=== PATIENT | male | born 1955 | race African-American/Black ===

== ENCOUNTER 2017-01-24 18:32 | Inpatient (IN) | payer MEDICAID ==
[~2017-01-24] VITALS: Ht 185.4 cm; Wt 120.6 kg
[~2017-01-24 18:32] MED LIST: ETOMIDATE 20 MG/10 ML ONE; MIDAZOLAM 1 MG/ML, 5ML ONE; PROPOFOL 10 MG/ML, 100ML IV ONE; PROPOFOL 10 MG/ML, 20ML ONE; ROCURONIUM 10 MG/ML ONE; SUCCINYLCHOLINE 20 MG/ML, 10ML ONE
[2017-01-24] MEDS: PROPOFOL 100 ML IV PRN ×2 (18:56→22:49)
[2017-01-24] MEDS ORDERED: NALOXONE 0.4 MG/ML, 1ML ONE (18:58)
[2017-01-24] MEDS ORDERED: SUCCINYLCHOLINE 20 MG/ML, 10ML IVPush ONE (19:00)
[2017-01-24] MEDS ORDERED: SODIUM CHLORIDE 0.9% 1,000ML IVBOLUS ONE ×2 (19:00→21:30)
[2017-01-24] MEDS ORDERED: PLEASE ENTER ALLERGIES MC SCH ×2 (19:00)
[2017-01-24] MEDS ORDERED: PLEASE ENTER HEIGHT AND WEIGHT MC SCH (19:00)
[2017-01-24] MEDS ORDERED: SODIUM CHLORIDE FLUSH 10ML SYR IVF ONE (19:00)
[2017-01-24] MEDS ORDERED: HYDROmorphone 1 MG/ML, 1ML ONE (19:05)
[2017-01-24 19:12] LABS: HEMATOCRIT 50.7 % (39.2-51.8)
[2017-01-24 19:18] LABS: BLOOD UREA NITROGEN 13 mg/dL (7-18)
[2017-01-24] MEDS: HYDROmorphone 1 MG/ML, 1ML IVPush PRN ×2 (19:23→21:48)
[2017-01-24 19:25] LABS: ACETAMINOPHEN < 2 mcg/mL (10-30); ASPARTATE AMINO TRANSFERASE 51 U/L (15-37); IS PT STATUS REG ER OR PRE ER? YES
[2017-01-24] MEDS ORDERED: BACITRACIN ZINC OINT 500U/GM, 0.9 GM ONE (19:26)
[2017-01-24] MEDS ORDERED: OXYMETAZOLINE NASAL SPRAY 0.05%, 15ML ONE (19:27)
[2017-01-24] MEDS ORDERED: ALBUTEROL SULFATE 2.5 MG/3 ML ONE ×2 (19:28→22:28)
[2017-01-24] MEDS ORDERED: PROPOFOL 10 MG/ML, 20ML IVPush ONE (19:30)
[2017-01-24 19:31] LABS: DIFF TOTAL CELLS COUNTED 100 CELL DIFF
[2017-01-24 19:35] LABS: VERIFY COUNTS? YES
[2017-01-24 19:37] LABS: ABG COLLECTION SITE RIGHT RADIAL; COLLATERAL CIRCULATION TESTING NORMAL
[2017-01-24] MEDS ORDERED: PROPOFOL 100 ML IV PRN (20:48)
[2017-01-24] MEDS ORDERED: LIDOCAINE-MPF 1%, 2ML ENDO PRN (21:00)
[2017-01-24] MEDS ORDERED: LACTULOSE 20 GM/30 ML UDC NG PRN (21:00)
[2017-01-24] MEDS ORDERED: PHARMACY MAY ADJ FOR RENAL FX MC SCH (21:00)
[2017-01-24] MEDS ORDERED: MIDAZOLAM 1 MG/ML, 5ML IVPush ONE (21:30)
[2017-01-24] MEDS ORDERED: VECURONIUM 10 MG IVPush ONE (21:30)
[2017-01-24] MEDS ORDERED: NOREPINEPHRINE 4 MG in SODIUM CHLORIDE 0.9% 246 ML IV PRN (22:00)
[2017-01-24] MEDS: FAMOTIDINE 20 MG/2 ML IVPush SCH (22:48)
[2017-01-24] MEDS ORDERED: ALBUTEROL SULFATE 2.5MG/0.5ML NPPB SCH (23:00)
[2017-01-24] MEDS: FENTANYL PF 100 MCG/2ML IVPush PRN (23:12)
[2017-01-24] MEDS: POTASSIUM CHLORIDE 20 MEQ, MAGNESIUM SULFATE 2 GM, THIAMINE 100 MG, MVI ADULT 10 ML, FO... IV SCH (23:17)
[2017-01-25] MEDS: PROPOFOL 100 ML IV PRN ×3 (01:37→05:47)
[2017-01-25] MEDS: FENTANYL PF 100 MCG/2ML IVPush PRN ×3 (01:53→05:47)
[2017-01-25] MEDS ORDERED: ALBUTEROL SULFATE 2.5 MG/3 ML ONE (01:53)
[2017-01-25] MEDS: ALBUTEROL SULFATE 2.5 MG/3 ML NPPB SCH ×3 (02:26→20:15)
[2017-01-25 04:04] LABS: HEMATOCRIT 43.3 % (39.2-51.8); HEMOGLOBIN 14.3 g/dL (13.7-18.0); WHITE BLOOD COUNT 6.9 x10^3/uL (3.4-10)
[2017-01-25 04:17] LABS: BLOOD UREA NITROGEN 12 mg/dL (7-18)
[2017-01-25 04:20] LABS: ASPARTATE AMINO TRANSFERASE 53 U/L (15-37)
[2017-01-25 04:23] LABS: ABG COLLECTION SITE RIGHT BRACHIAL
[2017-01-25 07:44] LABS: DAU SCREEN DISCLAIMER
[2017-01-25] MEDS: AMPICILLIN/SULBACTAM 3 GM in SODIUM CHLORIDE 0.9% 100 ML IV SCH ×3 (07:53→20:41)
[2017-01-25] MEDS ORDERED: ZIPRASIDONE 20 MG INJ IM ONE (08:00)
[2017-01-25] MEDS: FAMOTIDINE 20 MG/2 ML IVPush SCH ×2 (10:49→20:42)
[2017-01-25] MEDS: LABETALOL 5MG/ML, 20ML IVPush PRN ×2 (11:30→16:40)
[2017-01-25] MEDS: hydrALAzine 20 MG/ML, 1ML IV PRN (12:19)
[2017-01-25] MEDS: LISINOPRIL 10 MG TABLET PO SCH ×2 (13:24→20:42)
[2017-01-25 14:13] VITALS: BP 172/96
[2017-01-25] MEDS: LORazepam 1MG TABLET PO PRN ×2 (16:37→20:42)
[2017-01-25 16:38] VITALS: BP 198/111
[2017-01-25 17:29] VITALS: BP 161/111
[2017-01-25 18:53] VITALS: BP 162/93
[2017-01-25] MEDS ORDERED: FILTER 0.22 MICRON IV PRN (23:30)
[2017-01-25] MEDS ORDERED: AMIODARONE 150 MG in DEXTROSE 5% 100 ML IV ONE (23:30)
[2017-01-25] MEDS: POTASSIUM CHLORIDE 20 MEQ, MAGNESIUM SULFATE 2 GM, THIAMINE 100 MG, MVI ADULT 10 ML, FO... IV SCH (23:48)
[2017-01-26] MEDS: AMIODARONE 900 MG in DEXTROSE 5% 482 ML IV PRN ×2 (00:18→20:38)
[2017-01-26] MEDS: LORazepam 1MG TABLET PO PRN (00:42)
[2017-01-26 01:50] VITALS: BP 175/85
[2017-01-26] MEDS: AMPICILLIN/SULBACTAM 3 GM in SODIUM CHLORIDE 0.9% 100 ML IV SCH ×2 (03:08→09:20)
[2017-01-26 05:19] LABS: HEMATOCRIT 47.2 % (39.2-51.8); WHITE BLOOD COUNT 6.7 x10^3/uL (3.4-10)
[2017-01-26 07:28] VITALS: BP 186/114
[2017-01-26] MEDS: hydrALAzine 20 MG/ML, 1ML IV PRN ×3 (07:44→19:59)
[2017-01-26] MEDS: FAMOTIDINE 20 MG/2 ML IVPush SCH ×2 (08:50→19:58)
[2017-01-26] MEDS: LISINOPRIL 10 MG TABLET PO SCH ×2 (08:50→20:00)
[2017-01-26] MEDS ORDERED: ALBUTEROL SULFATE 2.5 MG/3 ML ONE (09:29)
[2017-01-26] MEDS: ALBUTEROL SULFATE 2.5 MG/3 ML NPPB SCH (09:30)
[2017-01-26 10:15] VITALS: BP 185/90
[2017-01-26] MEDS ORDERED: NITROGLYCERIN 0.4 MG/SPRAY SL PRN (11:00)
[2017-01-26] MEDS: LABETALOL 5MG/ML, 20ML IVPush PRN ×2 (11:20→17:55)
[2017-01-26 11:26] LABS: HEMATOCRIT 50.6 % (39.2-51.8); HEMOGLOBIN 17.3 g/dL (13.7-18.0); WHITE BLOOD COUNT 7.3 x10^3/uL (3.4-10)
[2017-01-26] MEDS ORDERED: AMIODARONE 150 MG in DEXTROSE 5% 100 ML IV ONE (11:30)
[2017-01-26 11:38] LABS: ASPARTATE AMINO TRANSFERASE 58 U/L (15-37); BLOOD UREA NITROGEN 6 mg/dL (7-18)
[2017-01-26 11:43] LABS: IS PT STATUS REG ER OR PRE ER? NO
[2017-01-26 12:03] LABS: ABG COLLECTION SITE RIGHT RADIAL; COLLATERAL CIRCULATION TESTING NORMAL
[2017-01-26] MEDS: ACETAMINOPHEN 325 MG TABLET PO PRN ×2 (16:31→20:38)
[2017-01-26 17:36] LABS: IS PT STATUS REG ER OR PRE ER? NO
[2017-01-26] MEDS ORDERED: FILTER 0.22 MICRON IV PRN (18:30)
[2017-01-26] MEDS: CARVEDILOL 3.125 MG TABLET PO SCH (18:43)
[2017-01-26] MEDS: ATORVASTATIN 20 MG TABLET PO SCH (19:59)
[2017-01-26] MEDS ORDERED: ENOXAPARIN 40 MG/0.4 ML SQ SCH (20:00)
[2017-01-26] MEDS: POTASSIUM CHLORIDE 20 MEQ, MAGNESIUM SULFATE 2 GM, THIAMINE 100 MG, MVI ADULT 10 ML, FO... IV SCH (22:22)
[2017-01-26] MEDS ORDERED: ONDANSETRON 2MG/ML, 2ML ONE (22:40)
[2017-01-26] MEDS ORDERED: ONDANSETRON 2MG/ML, 2ML IVPush PRN (23:00)
[2017-01-26] MEDS ORDERED: OMEP20CA14 PO (23:10)
[2017-01-26] MEDS ORDERED: GABA800T2 PO (23:10)
[2017-01-26] MEDS ORDERED: METO25TA9 PO (23:10)
[2017-01-26] MEDS ORDERED: DULO60CA7 PO (23:10)
[2017-01-26] MEDS ORDERED: CLON-275 PO (23:10)
[2017-01-26] MEDS ORDERED: BENA10TA2 PO (23:10)
[2017-01-26] MEDS ORDERED: HYDR50TA13 PO (23:10)
[2017-01-26] MEDS ORDERED: ASPI-496 PO (23:10)
[2017-01-26] MEDS ORDERED: MONT10TA6 PO (23:10)
[2017-01-26] MEDS ORDERED: TIZA4CAP PO (23:10)
[2017-01-26] MEDS ORDERED: RIVA20TA PO (23:10)
[2017-01-26] MEDS ORDERED: SERT50TA5 PO (23:10)
[2017-01-26] MEDS ORDERED: PANT40TA3 PO (23:10)
[2017-01-26] MEDS ORDERED: POTA25TA4 PO (23:10)
[2017-01-26 23:55] LABS: IS PT STATUS REG ER OR PRE ER? NO
[2017-01-27] MEDS: ACETAMINOPHEN 325 MG TABLET PO PRN ×2 (01:25→05:16)
[2017-01-27 04:30] VITALS: BP 151/108
[2017-01-27 04:38] LABS: ABG COLLECTION SITE LEFT RADIAL; COLLATERAL CIRCULATION TESTING NORMAL; FIO2 RA %
[2017-01-27 04:47] LABS: HEMATOCRIT 49.3 % (39.2-51.8); HEMOGLOBIN 16.4 g/dL (13.7-18.0); WHITE BLOOD COUNT 7.4 x10^3/uL (3.4-10)
[2017-01-27] MEDS: CARVEDILOL 3.125 MG TABLET PO SCH (05:16)
[2017-01-27] MEDS: LABETALOL 5MG/ML, 20ML IVPush PRN ×2 (05:36→18:05)
[2017-01-27] MEDS ORDERED: ASPIRIN 325 MG TABLET PO SCH (06:00)
[2017-01-27 07:19] LABS: BLOOD UREA NITROGEN 8 mg/dL (7-18)
[2017-01-27 07:24] LABS: ASPARTATE AMINO TRANSFERASE 57 U/L (15-37)
[2017-01-27] MEDS: LISINOPRIL 10 MG TABLET PO SCH (08:01)
[2017-01-27] MEDS: FAMOTIDINE 20 MG/2 ML IVPush SCH (08:01)
[2017-01-27] MEDS: OMEPRAZOLE 20 MG CAPSULE.DR PO SCH (09:00)
[2017-01-27] MEDS ORDERED: CLOPIDOGREL 75 MG TABLET PO SCH (09:00)
[2017-01-27] MEDS: GABAPENTIN 400 MG CAPSULE PO SCH ×3 (09:27→20:48)
[2017-01-27] MEDS: SERTRALINE 50MG TABLET PO SCH (09:27)
[2017-01-27] MEDS: TIZANIDINE 4MG TABLET PO SCH ×3 (09:27→20:47)
[2017-01-27] MEDS: BENAZEPRIL 10 MG TABLET PO SCH (09:28)
[2017-01-27] MEDS: RIVAROXABAN 20 MG TABLET PO SCH (09:28)
[2017-01-27] MEDS: MONTELUKAST 10 MG TABLET PO SCH (09:30)
[2017-01-27] MEDS: hydrOXyzine 50MG TABLET PO SCH (09:30)
[2017-01-27] MEDS: METOPROLOL SUCCINATE 25 MG TAB.ER.24H PO SCH ×2 (09:30→20:48)
[2017-01-27] MEDS: DULOXETINE 30 MG CAPSULE.DR PO SCH (09:31)
[2017-01-27] MEDS: AMIODARONE 200 MG TABLET PO SCH ×2 (10:13→20:47)
[2017-01-27] MEDS: ATORVASTATIN 20 MG TABLET PO SCH (20:47)
[2017-01-28 04:15] VITALS: BP 137/89
[2017-01-28 04:40] LABS: HEMATOCRIT 45.7 % (39.2-51.8); HEMOGLOBIN 15.6 g/dL (13.7-18.0); WHITE BLOOD COUNT 7.3 x10^3/uL (3.4-10)
[2017-01-28 05:02] LABS: BLOOD UREA NITROGEN 12 mg/dL (7-18)
[2017-01-28] MEDS: ASPIRIN 81 MG TABLET EC PO SCH (06:24)
[2017-01-28 07:33] VITALS: BP 152/103
[2017-01-28] MEDS: RIVAROXABAN 20 MG TABLET PO SCH (07:52)
[2017-01-28] MEDS: AMIODARONE 200 MG TABLET PO SCH ×2 (07:52→20:55)
[2017-01-28] MEDS: METOPROLOL SUCCINATE 25 MG TAB.ER.24H PO SCH ×2 (07:52→20:56)
[2017-01-28] MEDS: GABAPENTIN 400 MG CAPSULE PO SCH ×3 (07:53→20:55)
[2017-01-28] MEDS: BENAZEPRIL 10 MG TABLET PO SCH (07:53)
[2017-01-28] MEDS: OMEPRAZOLE 20 MG CAPSULE.DR PO SCH (07:53)
[2017-01-28] MEDS: TIZANIDINE 4MG TABLET PO SCH ×3 (07:53→20:55)
[2017-01-28] MEDS: DULOXETINE 30 MG CAPSULE.DR PO SCH (07:54)
[2017-01-28] MEDS: MONTELUKAST 10 MG TABLET PO SCH (07:54)
[2017-01-28] MEDS: hydrOXyzine 50MG TABLET PO SCH (07:55)
[2017-01-28] MEDS ORDERED: MORPHINE SULFATE 4 MG/ML, 1ML ONE (11:22)
[2017-01-28] MEDS ORDERED: NITROGLYCERIN SINGLE TAB 0.4 MG SL ONE (11:47)
[2017-01-28 12:06] LABS: IS PT STATUS REG ER OR PRE ER? NO
[2017-01-28] MEDS ORDERED: MIDAZOLAM 1 MG/ML, 5ML ONE (12:25)
[2017-01-28] MEDS ORDERED: FENTANYL PF 100 MCG/2ML ONE (12:26)
[2017-01-28] MEDS ORDERED: TICAGRELOR 90 MG TABLET ONE (12:26)
[2017-01-28] MEDS ORDERED: VERAPAMIL 2.5 MG/ML, 2ML ONE (12:26)
[2017-01-28] MEDS ORDERED: DIPHENHYDRAMINE 50 MG/ML, 1ML ONE (12:27)
[2017-01-28] MEDS ORDERED: LIDOCAINE 2%, 20ML ONE (12:27)
[2017-01-28] MEDS ORDERED: BIVALIRUDIN 250 MG ONE (12:27)
[2017-01-28] MEDS ORDERED: HEPARIN 1,000 UNITS/ML, 10ML ONE (12:27)
[2017-01-28] MEDS ORDERED: NITROGLYCERIN 5 MG/ML, 10ML ONE (12:28)
[2017-01-28 13:30] VITALS: BP 130/83
[2017-01-28] MEDS ORDERED: MORPHINE SULFATE 4 MG/ML, 1ML IVPush PRN (14:00)
[2017-01-28] MEDS ORDERED: NITROGLYCERIN SINGLE TAB 0.4 MG SL PRN (14:00)
[2017-01-28 14:02] VITALS: BP 135/90
[2017-01-28 16:57] VITALS: BP 137/89
[2017-01-28 18:49] VITALS: BP 120/73
[2017-01-28] MEDS: ATORVASTATIN 20 MG TABLET PO SCH (20:56)
[2017-01-28] MEDS: SERTRALINE 50MG TABLET PO SCH (20:56)
[2017-01-29 02:36] VITALS: BP 134/80
[2017-01-29] MEDS: ASPIRIN 81 MG TABLET EC PO SCH (04:45)
[2017-01-29 06:05] LABS: BLOOD UREA NITROGEN 15 mg/dL (7-18)
[2017-01-29 07:53] VITALS: BP 158/99
[2017-01-29] MEDS: BENAZEPRIL 10 MG TABLET PO SCH (08:14)
[2017-01-29] MEDS: hydrOXyzine 50MG TABLET PO SCH (08:14)
[2017-01-29] MEDS: TIZANIDINE 4MG TABLET PO SCH ×3 (08:14→21:54)
[2017-01-29] MEDS: SERTRALINE 50MG TABLET PO SCH (08:14)
[2017-01-29] MEDS: DULOXETINE 30 MG CAPSULE.DR PO SCH (08:14)
[2017-01-29] MEDS: RIVAROXABAN 20 MG TABLET PO SCH (08:15)
[2017-01-29] MEDS: GABAPENTIN 400 MG CAPSULE PO SCH ×3 (08:15→20:46)
[2017-01-29] MEDS: MONTELUKAST 10 MG TABLET PO SCH (08:15)
[2017-01-29] MEDS: OMEPRAZOLE 20 MG CAPSULE.DR PO SCH (08:15)
[2017-01-29] MEDS: METOPROLOL SUCCINATE 25 MG TAB.ER.24H PO SCH ×2 (08:15→20:46)
[2017-01-29] MEDS: AMIODARONE 200 MG TABLET PO SCH (08:15)
[2017-01-29 12:15] VITALS: BP 120/77
[2017-01-29 13:45] VITALS: BP 138/89
[2017-01-29 20:42] VITALS: BP 133/85
[2017-01-29] MEDS: ATORVASTATIN 20 MG TABLET PO SCH (20:46)
[2017-01-29] MEDS: ALBUTEROL SULFATE 2.5 MG/3 ML NPPB SCH (21:05)
[2017-01-30 01:55] VITALS: BP 165/96
[2017-01-30 02:30] VITALS: BP 143/67
[2017-01-30] MEDS: ASPIRIN 81 MG TABLET EC PO SCH (05:19)
[2017-01-30 07:34] VITALS: BP 194/131
[2017-01-30] MEDS: OMEPRAZOLE 20 MG CAPSULE.DR PO SCH (08:12)
[2017-01-30] MEDS: GABAPENTIN 400 MG CAPSULE PO SCH ×2 (08:12→16:18)
[2017-01-30] MEDS: MONTELUKAST 10 MG TABLET PO SCH (08:12)
[2017-01-30] MEDS: METOPROLOL SUCCINATE 25 MG TAB.ER.24H PO SCH (08:12)
[2017-01-30] MEDS: DULOXETINE 30 MG CAPSULE.DR PO SCH (08:12)
[2017-01-30] MEDS: RIVAROXABAN 20 MG TABLET PO SCH (08:12)
[2017-01-30] MEDS: LORazepam 1MG TABLET PO PRN (08:13)
[2017-01-30] MEDS: TIZANIDINE 4MG TABLET PO SCH ×2 (08:13→16:18)
[2017-01-30] MEDS: SERTRALINE 50MG TABLET PO SCH (08:13)
[2017-01-30] MEDS: hydrOXyzine 50MG TABLET PO SCH (08:13)
[2017-01-30] MEDS: BENAZEPRIL 10 MG TABLET PO SCH (08:23)
[2017-01-30] MEDS ORDERED: AMIODARONE 200 MG TABLET PO SCH (09:00)
[2017-01-30 13:27] VITALS: BP 144/91
== END 2017-01-30 16:54 | disposition home or self-care (01) | DRG 208 ==
LOC: ED 20:27 → EDIP 20:30 → CCU 21:26 → 4EST 01-25 14:34 → CCU 01-26 11:03 → 5SO 01-28 16:50
PROVIDERS: ADMIT Internal Medicine; ATTEND Internal Medicine
PROC: 0BH17EZ Insertion of Endotracheal Airway into Trachea, Via Natural or Artificial Opening (ICD-10-PCS; principal; 2017-01-24)
PROC: 5A1945Z Respiratory Ventilation, 24-96 Consecutive Hours (ICD-10-PCS; 2017-01-24)
PROC: 06HM33Z Insertion of Infusion Device into Right Femoral Vein, Percutaneous Approach (ICD-10-PCS; 2017-01-24)
PROC: B54BZZA Ultrasonography of Right Lower Extremity Veins, Guidance (ICD-10-PCS; 2017-01-24)
DX: J96.01 Acute respiratory failure with hypoxia (principal); G93.41 Metabolic encephalopathy; I47.2 Ventricular tachycardia; Z99.11 Dependence on respirator [ventilator] status; E87.2 Acidosis; I42.9 Cardiomyopathy, unspecified; E78.5 Hyperlipidemia, unspecified; E87.8 Other disorders of electrolyte and fluid balance, not elsewhere classified; F10.229 Alcohol dependence with intoxication, unspecified; I10 Essential (primary) hypertension; I25.10 Atherosclerotic heart disease of native coronary artery without angina pectoris; I49.3 Ventricular premature depolarization; J45.909 Unspecified asthma, uncomplicated; N28.9 Disorder of kidney and ureter, unspecified; R04.0 Epistaxis; Z79.01 Long term (current) use of anticoagulants; Z79.899 Other long term (current) drug therapy; Z86.711 Personal history of pulmonary embolism; Z87.891 Personal history of nicotine dependence; Z95.5 Presence of coronary angioplasty implant and graft
CPT/HCPCS: 31500; 36415; 36600; 51702; 70450; 71010; 80048; 80053; 80307; 80329; 82803; 83605; 83735; 83880; 84478; 84484; 85025; 87070; 87081; 87147; 87205; 93005; 93306; 93458; 94002; 94003; 94640; 99156; C1769; C1894; J0295; J0583; J1170; J1644; J1650; J2250; J2405; J2704; J3010; J3411; J3475; J3480; J3486; J3490; J7042; J7611; J7613; G0480; J0282; J0330; J0360; J1200; J7030; J7060; Q9967; S0028

== ENCOUNTER 2017-07-15 00:47 | Inpatient (IN) | payer MEDICAID ==
[~2017-07-15] VITALS: Ht 182.9 cm; Wt 126.6 kg
[~2017-07-15 00:47] MED LIST changes: +ASPI-496 PO; +BENA10TA2 PO; +CLON-275 PO; +DULO60CA7 PO; -ETOMIDATE 20 MG/10 ML ONE; +GABA800T2 PO; +HYDR50TA13 PO; +METO-282 PO; -MIDAZOLAM 1 MG/ML, 5ML ONE; +MONT10TA6 PO; +OMEP20CA14 PO; +PANT40TA3 PO; +POTA25TA4 PO; -PROPOFOL 10 MG/ML, 100ML IV ONE; -PROPOFOL 10 MG/ML, 20ML ONE; +RIVA20TA PO; -ROCURONIUM 10 MG/ML ONE; +SERT50TA5 PO; -SUCCINYLCHOLINE 20 MG/ML, 10ML ONE; +TIZA4CAP PO
[2017-07-15] MEDS ORDERED: SODIUM CHLORIDE 0.9% 1,000 ML IV ONE (00:54)
[2017-07-15] MEDS ORDERED: NITROGLYCERIN SINGLE TAB 0.4 MG SL PRN (01:00)
[2017-07-15] MEDS ORDERED: SODIUM CHLORIDE FLUSH 10ML SYR IVF ONE (01:00)
[2017-07-15] MEDS ORDERED: ONDANSETRON 2MG/ML, 2ML IVPush ONE (01:00)
[2017-07-15 01:11] LABS: BASOPHILS # (AUTO) 0.05 x10^3/uL (0-0.1); BASOPHILS % (AUTO) 1 % (0-1); EOSINOPHILS # (AUTO) 0.32 x10^3/uL (0-0.4); EOSINOPHILS % (AUTO) 5 % (1-7); LYMPHOCYTES # (AUTO) 2.42 x10^3/uL (1-3.4); LYMPHOCYTES % (AUTO) 39 % (22-44); MD NO; MEAN CORPUSCULAR HEMOGLOBIN 31.1 pg (27.5-34.5); MEAN CORPUSCULAR VOLUME 91.3 fL (81-97); MEAN PLATELET VOLUME 8.6 fL (7.4-10.4); MONOCYTES # (AUTO) 0.54 x10^3/uL (0.2-0.8); MONOCYTES % (AUTO) 9 % (2-9); NEUTROPHILS # (AUTO) 2.82 x10^3/uL (1.8-6.8); NEUTROPHILS % (AUTO) 46 % (42-75); PLATELET COUNT 221 x10^3/uL (130-400); RED BLOOD COUNT 4.68 x10^6/uL (4.38-5.82); RED CELL DISTRIBUTION WIDTH 13.9 % (9.4-14.8)
[2017-07-15] MEDS ORDERED: ONDANSETRON 2MG/ML, 2ML ONE (01:13)
[2017-07-15] MEDS ORDERED: MORPHINE SULFATE 4 MG/ML, 1ML ONE ×2 (01:13→05:40)
[2017-07-15 01:22] LABS: ALANINE AMINOTRANSFERASE 48 U/L (12-78); ALBUMIN 3.5 g/dL (3.4-5.0); ANION GAP 11 mmol/L (5-15); CALCIUM 8.2 mg/dL (8.5-10.1); CHLORIDE 107 mmol/L (98-107); CREATININE 1.23 mg/dL (0.7-1.3)
[2017-07-15] MEDS: MORPHINE SULFATE 4 MG/ML, 1ML IVPush PRN ×2 (01:22→05:45)
[2017-07-15 01:26] LABS: ALKALINE PHOSPHATASE 89 U/L (45-117); BILIRUBIN,TOTAL 0.4 mg/dL (0.2-1.0); TOTAL PROTEIN 7.4 g/dL (6.4-8.2); TROPONIN I < 0.015 ng/mL (0.000-0.045)
[2017-07-15] MEDS ORDERED: NITROGLYCERIN SINGLE TAB 0.4 MG SL ONE (01:47)
[2017-07-15 04:33] LABS: TROPONIN I < 0.015 ng/mL (0.000-0.045)
[2017-07-15] MEDS ORDERED: ONDANSETRON 2MG/ML, 2ML IVPush PRN ×2 (07:00→09:30)
[2017-07-15] MEDS ORDERED: CLON0.3T47 PO (09:00)
[2017-07-15] MEDS ORDERED: OXYC15TA PO (09:01)
[2017-07-15 09:28] VITALS: BP 151/96
[2017-07-15] MEDS ORDERED: ONDANSETRON ODT 4 MG PO PRN (09:30)
[2017-07-15] MEDS ORDERED: ACETAMINOPHEN 325 MG TABLET PO PRN (09:30)
[2017-07-15] MEDS: POTASSIUM CHLORIDE 20 MEQ TAB.ER.PRT PO SCH ×2 (10:30→15:54)
[2017-07-15] MEDS ORDERED: NITROGLYCERIN 0.4 MG/SPRAY SL PRN (10:30)
[2017-07-15] MEDS: OXYcodone IR 5MG TABLET PO PRN ×3 (10:30→22:32)
[2017-07-15] MEDS ORDERED: NITROGLYCERIN 0.4 MG BOTTLE (25 TABS) SL PRN (10:30)
[2017-07-15] MEDS: BENAZEPRIL 10 MG TABLET PO SCH (10:31)
[2017-07-15 12:42] LABS: TROPONIN I < 0.015 ng/mL (0.000-0.045)
[2017-07-15] MEDS: GABAPENTIN 400 MG CAPSULE PO SCH ×2 (15:54→21:00)
[2017-07-15] MEDS: TIZANIDINE 4MG TABLET PO SCH ×2 (15:54→21:00)
[2017-07-15 17:36] VITALS: BP 158/99
[2017-07-15 18:29] LABS: TROPONIN I < 0.015 ng/mL (0.000-0.045)
[2017-07-15] MEDS: KETOROLAC 30 MG/1 ML IVPush PRN (18:39)
[2017-07-15 20:40] VITALS: BP 172/104
[2017-07-15] MEDS: METOPROLOL SUCCINATE 25 MG TAB.ER.24H PO SCH (21:00)
[2017-07-15] MEDS: RIVAROXABAN 20 MG TABLET PO SCH (21:00)
[2017-07-15] MEDS: POTASSIUM CHLORIDE 10 MEQ TABLET.ER PO SCH (21:00)
[2017-07-15 23:21] VITALS: BP 123/82
[2017-07-16 04:08] VITALS: BP 138/80
[2017-07-16] MEDS: OXYcodone IR 5MG TABLET PO PRN ×2 (04:34→18:12)
[2017-07-16 05:03] LABS: CHLORIDE 106 mmol/L (98-107)
[2017-07-16 05:11] LABS: BASOPHILS # (AUTO) 0.04 x10^3/uL (0-0.1); BASOPHILS % (AUTO) 1 % (0-1); EOSINOPHILS # (AUTO) 0.36 x10^3/uL (0-0.4); EOSINOPHILS % (AUTO) 8 % (1-7); LYMPHOCYTES # (AUTO) 2.38 x10^3/uL (1-3.4); LYMPHOCYTES % (AUTO) 50 % (22-44); MD NO; MEAN CORPUSCULAR HEMOGLOBIN 31.4 pg (27.5-34.5); MEAN CORPUSCULAR VOLUME 92.3 fL (81-97); MEAN PLATELET VOLUME 8.9 fL (7.4-10.4); MONOCYTES # (AUTO) 0.46 x10^3/uL (0.2-0.8); MONOCYTES % (AUTO) 10 % (2-9); NEUTROPHILS % (AUTO) 32 % (42-75); PLATELET COUNT 214 x10^3/uL (130-400); RED BLOOD COUNT 4.58 x10^6/uL (4.38-5.82); RED CELL DISTRIBUTION WIDTH 14.3 % (9.4-14.8)
[2017-07-16 05:20] LABS: ALANINE AMINOTRANSFERASE 52 U/L (12-78); ALBUMIN 3.3 g/dL (3.4-5.0); ALKALINE PHOSPHATASE 93 U/L (45-117); ANION GAP 7 mmol/L (5-15); BILIRUBIN,TOTAL 0.8 mg/dL (0.2-1.0); CALCIUM 7.8 mg/dL (8.5-10.1); CHOL/HDL RATIO 3.1; CHOLESTEROL, TOTAL 111 mg/dL (140-239); CREATININE 1.26 mg/dL (0.7-1.3); HDL CHOL % 32 % (26-37); HDL CHOLESTEROL (DIRECT) 36 mg/dL (40-60); LDL CHOLESTEROL,CALCULATED 51 mg/dL (54-169); LDL/HDL RATIO 1.4 (0.5-3.0); TOTAL PROTEIN 6.9 g/dL (6.4-8.2); TRIGLYCERIDES 120 mg/dL (50-200); VLDL CHOLESTEROL 24 mg/dL (0-25)
[2017-07-16 05:25] LABS: HEMOGLOBIN A1C 6.7 % (4.2-6.3)
[2017-07-16 07:45] VITALS: BP 162/104
[2017-07-16] MEDS ORDERED: RIVAROXABAN 20 MG TABLET PO SCH (08:00)
[2017-07-16] MEDS: POTASSIUM CHLORIDE 10 MEQ TABLET.ER PO SCH ×2 (09:00→20:23)
[2017-07-16] MEDS: hydrOXyzine 50MG TABLET PO SCH (09:00)
[2017-07-16] MEDS ORDERED: hydrOXyzine 10MG TABLET ONE (09:38)
[2017-07-16] MEDS: POTASSIUM CHLORIDE 20 MEQ TAB.ER.PRT PO SCH (09:45)
[2017-07-16] MEDS: DULOXETINE 30 MG CAPSULE.DR PO SCH (09:46)
[2017-07-16] MEDS: ASPIRIN 81 MG TABLET EC PO SCH (09:46)
[2017-07-16] MEDS: TIZANIDINE 4MG TABLET PO SCH ×3 (09:47→20:23)
[2017-07-16] MEDS: BENAZEPRIL 10 MG TABLET PO SCH (09:47)
[2017-07-16] MEDS: PANTOPROZOLE 40MG TABLET PO SCH (09:47)
[2017-07-16] MEDS: MONTELUKAST 10 MG TABLET PO SCH (09:47)
[2017-07-16] MEDS: SERTRALINE 50MG TABLET PO SCH (09:47)
[2017-07-16] MEDS: GABAPENTIN 400 MG CAPSULE PO SCH ×3 (09:47→20:22)
[2017-07-16] MEDS: METOPROLOL SUCCINATE 25 MG TAB.ER.24H PO SCH ×2 (09:47→20:23)
[2017-07-16 13:19] VITALS: BP 115/74
[2017-07-16] MEDS ORDERED: TIZANIDINE 2MG TABLET ONE (16:25)
[2017-07-16] MEDS: RIVAROXABAN 20 MG TABLET PO SCH (18:09)
[2017-07-16] MEDS: KETOROLAC 30 MG/1 ML IVPush PRN (20:27)
[2017-07-16 20:47] VITALS: BP 158/106
[2017-07-17 01:51] VITALS: BP 152/98
[2017-07-17 05:39] LABS: ANION GAP 5 mmol/L (5-15); CALCIUM 8.5 mg/dL (8.5-10.1); CHLORIDE 106 mmol/L (98-107); CREATININE 1.24 mg/dL (0.7-1.3)
[2017-07-17] MEDS ORDERED: hydrOXyzine 10MG TABLET ONE (07:18)
[2017-07-17 07:23] VITALS: BP 161/99
[2017-07-17] MEDS: GABAPENTIN 400 MG CAPSULE PO SCH ×2 (07:27→16:28)
[2017-07-17] MEDS: hydrOXyzine 50MG TABLET PO SCH (07:27)
[2017-07-17] MEDS: SERTRALINE 50MG TABLET PO SCH (07:27)
[2017-07-17] MEDS: POTASSIUM CHLORIDE 10 MEQ TABLET.ER PO SCH (07:27)
[2017-07-17] MEDS: METOPROLOL SUCCINATE 25 MG TAB.ER.24H PO SCH (07:28)
[2017-07-17] MEDS: ASPIRIN 81 MG TABLET EC PO SCH (07:28)
[2017-07-17] MEDS: PANTOPROZOLE 40MG TABLET PO SCH (07:28)
[2017-07-17] MEDS: MONTELUKAST 10 MG TABLET PO SCH (07:28)
[2017-07-17] MEDS: TIZANIDINE 4MG TABLET PO SCH ×2 (07:28→16:28)
[2017-07-17] MEDS: BENAZEPRIL 10 MG TABLET PO SCH (07:28)
[2017-07-17] MEDS: DULOXETINE 30 MG CAPSULE.DR PO SCH (07:28)
[2017-07-17] MEDS ORDERED: REGADENOSON 0.4 MG/5 ML SYRINGE ONE (09:20)
[2017-07-17 14:09] VITALS: BP 157/94
[2017-07-17] MEDS: OXYcodone IR 5MG TABLET PO PRN (14:15)
[2017-07-17] MEDS: RIVAROXABAN 20 MG TABLET PO SCH (16:28)
== END 2017-07-17 18:03 | disposition home or self-care (01) | DRG 313 ==
LOC: ED 02:44 → EDIP 06:47 → 5SO 09:15
PROVIDERS: ADMIT Hospitalist; ATTEND Hospitalist
DX: R07.9 Chest pain, unspecified (principal); I25.10 Atherosclerotic heart disease of native coronary artery without angina pectoris; F11.20 Opioid dependence, uncomplicated; I11.9 Hypertensive heart disease without heart failure; J45.909 Unspecified asthma, uncomplicated; K21.9 Gastro-esophageal reflux disease without esophagitis; J98.11 Atelectasis; E78.5 Hyperlipidemia, unspecified; R73.9 Hyperglycemia, unspecified; M51.36 Other intervertebral disc degeneration, lumbar region; E87.6 Hypokalemia; F32.9 Major depressive disorder, single episode, unspecified; G89.29 Other chronic pain; H40.9 Unspecified glaucoma; I25.2 Old myocardial infarction; Z79.01 Long term (current) use of anticoagulants; Z86.711 Personal history of pulmonary embolism; Z86.718 Personal history of other venous thrombosis and embolism; Z86.79 Personal history of other diseases of the circulatory system; Z95.5 Presence of coronary angioplasty implant and graft; Z88.0 Allergy status to penicillin; Z79.899 Other long term (current) drug therapy
CPT/HCPCS: 36415; 71045; 78452; 80048; 80053; 80061; 80307; 83036; 83735; 84443; 84484; 85025; 93005; 93017; 93306; 96361; 96374; 96375; 96376; J1885; J2405; J2785; A9502; C9898; J7030

== ENCOUNTER 2018-06-21 16:25 | Emergency (ER) | payer MEDICAID ==
[~2018-06-21] VITALS: Ht 182.9 cm; Wt 114.5 kg
[~2018-06-21 16:25] MED LIST changes: -BENA10TA2 PO; +BENA10TA4 PO; +CLON0.3T47 PO; -GABA800T2 PO; +GABA800T5 PO; +OXYC15TA PO; +SERT50TA28 PO; -SERT50TA5 PO
[2018-06-21 16:29] VITALS: BP 123/81
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
--- NOTE | 2018-06-21 17:41 | NUR ---
Resting in [facility]. No needs.
--- NOTE | 2018-06-21 18:37 | NUR ---
Patient refusing connor wrap. Patient wears bilat knee compression wraps daily at home.
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
== END 2018-06-21 19:09 | disposition home or self-care (01) ==
LOC: ED 18:45
DX: S80.02XA Contusion of left knee, initial encounter (principal); S00.93XA Contusion of unspecified part of head, initial encounter; I25.10 Atherosclerotic heart disease of native coronary artery without angina pectoris; W07.XXXA Fall from chair, initial encounter; Y93.89 Activity, other specified; Y92.410 Unspecified street and highway as the place of occurrence of the external cause; Y99.8 Other external cause status
CPT/HCPCS: 70450; 99284

== ENCOUNTER 2021-02-01 12:21 | Emergency (ER) | payer MEDICAID ==
[~2021-02-01] VITALS: Ht 185.4 cm; Wt 122.0 kg
[~2021-02-01 12:21] MED LIST changes: -BENA10TA4 PO; +BENA10TA59 PO; +CLON0.3T PO; -CLON0.3T47 PO; -HYDR50TA13 PO; +HYDR50TA99 PO; -OMEP20CA14 PO; +OMEP20CA20 PO; -OXYC15TA PO; +OXYC15TA3 PO
[2021-02-01 12:43] VITALS: BP 128/85
--- NOTE | 2021-02-01 12:50 | NUR ---
EKG DONE IN TRIAGE
[2021-02-01 13:17] LABS: BASOPHILS % (AUTO) 1 % (0-1); EOSINOPHILS % (AUTO) 3 % (1-7); LYMPHOCYTES % (AUTO) 29 % (22-44); MEAN CORPUSCULAR HEMOGLOBIN 25.5 pg (27.5-34.5); MEAN CORPUSCULAR HGB CONC 33.1 g/dL (33.2-36.2); MEAN PLATELET VOLUME 7.8 fL (7.4-10.4); MONOCYTES % (AUTO) 9 % (2-9); NEUTROPHILS % (AUTO) 58 % (42-75); PLATELET COUNT 301 x10^3/uL (130-400); RED BLOOD COUNT 3.91 x10^6/uL (4.38-5.82); RED CELL DISTRIBUTION WIDTH 18.9 % (9.4-14.8)
[2021-02-01 13:28] LABS: ALBUMIN 3.3 g/dL (3.4-5.0); ANION GAP 5 mmol/L (5-15); CALCIUM 8.4 mg/dL (8.5-10.1); CHLORIDE 108 mmol/L (98-107)
[2021-02-01 13:34] LABS: ALANINE AMINOTRANSFERASE 29 U/L (12-78); ALKALINE PHOSPHATASE 89 U/L (45-117); BILIRUBIN,TOTAL 0.7 mg/dL (0.2-1.0); CREATININE 1.05 mg/dL (0.7-1.3); TOTAL PROTEIN 7.2 g/dL (6.4-8.2); TROPONIN I < 0.015 ng/mL (0.000-0.045)
--- NOTE | 2021-02-01 23:55 | NUR ---
NILX1 FOR PROVIDER RECHECK
--- NOTE | 2021-02-02 01:12 | NUR ---
NA X 2
--- NOTE | 2021-02-02 01:52 | NUR ---
NILX2
--- NOTE | 2021-02-02 02:15 | NUR ---
NILX3
== END 2021-02-02 02:17 | disposition left against medical advice (07) ==
LOC: ED 13:00
DX: R07.89 Other chest pain (principal); I11.0 Hypertensive heart disease with heart failure; I50.9 Heart failure, unspecified; I25.2 Old myocardial infarction
CPT/HCPCS: 36415; 71045; 80053; 83690; 83880; 84484; 85025; 93005; 99285